=== PATIENT | male | born 1945 | race Caucasian/White ===

== ENCOUNTER 2023-10-29 23:19 | Inpatient (IN) | payer OTHER ==
[2023-10-30 00:26] LABS: VENOUS BASE EXCESS -5.3 mmol/L (-2-2); VENOUS O2 SATURATION 31.9 % (70-80); VENOUS PCO2 45.3 mmHg (38-52); VENOUS PH 7.288 (7.310-7.410)
[2023-10-30 00:29] LABS: BASO % 0.7 % (0-2.0); EOS % 0.4 % (0-4.5); HEMATOCRIT 35.9 % (35.4-49); HEMOGLOBIN 12.2 GM/dL (11.7-16.9); LYMPH % 15.1 % (8-40); MCH 30.2 pg (25.7-33.7); MEAN CELL VOLUME 88.7 fl (80-96); MEAN PLT VOLUME 9.3 fl (7.5-11.1); MONO % 5.4 % (3.8-10.2); NEUT % 78.4 % (42.8-82.8); PLATELET COUNT 187 10^3/uL (134-434); RBC 4.05 M/mm3 (4.00-5.60); RDW 14.3 % (11.9-15.9); WHITE BLOOD COUNT 9.3 K/mm3 (4.0-10.0)
[2023-10-30 00:35] LABS: PROTHROMBIN TIME (PATIENT) 56.3 SEC (9.7-13.0)
[2023-10-30 00:38] LABS: ACTIVATED PTT 42.8 SECONDS (25.2-36.5)
[2023-10-30 00:47] LABS: POTASSIUM 5.2 mmol/L (3.5-5.1)
[2023-10-30 00:50] LABS: CALCIUM 8.9 mg/dL (8.5-10.1)
[2023-10-30 00:51] LABS: BLOOD UREA NITROGEN 15.8 mg/dL (7-18); MAGNESIUM 1.6 mg/dL (1.8-2.4)
[2023-10-30 00:53] LABS: CREATININE 1.3 mg/dL (0.55-1.3)
[2023-10-30 00:54] LABS: BILIRUBIN,TOTAL 0.5 mg/dL (0.2-1)
[2023-10-30 00:58] LABS: N-TERMINAL BNP 1951.8 pg/ml (5-450)
[2023-10-30 01:04] LABS: INR 5.23 (0.83-1.09)
[2023-10-30] MEDS ORDERED: methylPREDNISolone NA SUCC 125 MG/2 ML VIAL ONE (01:14)
[2023-10-30] MEDS ORDERED: ALBUTEROL SO4 2.5/IPRATROPIUM 0.5 INH SOL 3 ML VIAL.NEB. NEB ONE (01:14)
[2023-10-30] MEDS: ALBUTEROL SO4 2.5/IPRATROPIUM 0.5 INH SOL 3 ML VIAL.NEB. NEB SCH (01:23)
[2023-10-30] MEDS: methylPREDNISolone NA SUCC 125 MG/2 ML VIAL IVPUSH ONE (01:23)
[2023-10-30 02:34] LABS: URINE APPEARANCE CLEAR; URINE BILIRUBIN NEGATIVE (NEGATIVE); URINE COLOR YELLOW; URINE GLUCOSE (UA) NEGATIVE (NEGATIVE); URINE KETONE NEGATIVE (NEGATIVE); URINE LEUK ESTERASE NEGATIVE (NEGATIVE); URINE NITRITE NEGATIVE (NEGATIVE); URINE PROTEIN NEGATIVE (NEGATIVE); URINE UROBILINOGEN 0.2 mg/dL (0.2-1.0)
[2023-10-30] MEDS ORDERED: MAGNESIUM SULFATE IN WATER 2 GM/50 ML IVPB IVPB ONE (04:03)
[2023-10-30 04:18] LABS: VENOUS BASE EXCESS -8.2 mmol/L (-2-2); VENOUS O2 SATURATION 64.8 % (70-80); VENOUS PH 7.362 (7.310-7.410)
[2023-10-30] MEDS: MAGNESIUM SULFATE IN WATER 2 GM/50 ML IVPB IVPB ONE (04:22)
[2023-10-30] MEDS ORDERED: ACETAMINOPHEN 325 MG TABLET (FP) PO PRN (04:53)
[2023-10-30] MEDS ORDERED: DOCUSATE SODIUM 100 MG CAPSULE (FP) PO PRN (04:53)
[2023-10-30 06:17] LABS: PROTHROMBIN TIME (PATIENT) 51.7 SEC (9.7-13.0)
[2023-10-30 08:36] LABS: INR 4.79 (0.83-1.09)
[2023-10-30] MEDS ORDERED: ALBUTEROL SO4 2.5/IPRATROPIUM 0.5 INH SOL 3 ML VIAL.NEB. NEB PRN (08:54)
[2023-10-30] MEDS: CARVEDILOL 25 MG TABLET (FP) PO SCH (09:14)
[2023-10-30] MEDS: ASPIRIN COATED 81 MG TABLET.EC PO SCH (09:14)
[2023-10-30] MEDS: methylPREDNISolone NA SUCC 40 MG/1 ML VIAL IVPUSH SCH (09:15)
[2023-10-30] MEDS: SERTRALINE HCL 50 MG TABLET (FP) PO SCH (09:15)
[2023-10-30] MEDS: amLODIPine BESYLATE 10 MG TABLET (FP) PO SCH (09:15)
[2023-10-30] MEDS ORDERED: INSULIN REGULAR HUMAN 100 UNITS/ML *VIAL ONE (11:58)
[2023-10-30] MEDS: INSULIN ASPART SLIDING SCALE (NOVOLOG) 1 VIAL SQ SCH (12:03)
[2023-10-30 13:16] LABS: POTASSIUM 5.3 mmol/L (3.5-5.1)
[2023-10-30 13:21] LABS: CALCIUM 9.3 mg/dL (8.5-10.1)
[2023-10-30 13:22] LABS: BLOOD UREA NITROGEN 14.3 mg/dL (7-18); MAGNESIUM 1.8 mg/dL (1.8-2.4)
[2023-10-30 13:23] LABS: LACTIC ACID 5.2 mmol/L (0.4-2.0)
[2023-10-30 13:24] LABS: CREATININE 1.3 mg/dL (0.55-1.3); PHOSPHOROUS 2.1 mg/dL (2.5-4.9)
[2023-10-30] MEDS: SODIUM ZIRCONIUM CYCLOSILICATE (LOKELMA) 5 GM PACKET PO SCH (14:28)
[2023-10-30] MEDS: FUROSEMIDE 40 MG/4 ML INJECTABLE VIAL IVPUSH ONE (14:28)
[2023-10-30 15:39] LABS: BASO % 0.2 % (0-2.0); HEMOGLOBIN 12.4 GM/dL (11.7-16.9); LYMPH % 18.6 % (8-40); MCHC 33.6 g/dl (32.0-35.9); MEAN CELL VOLUME 89.3 fl (80-96); MEAN PLT VOLUME 9.4 fl (7.5-11.1); MONO % 2.5 % (3.8-10.2); NEUT % 78.7 % (42.8-82.8); PLATELET COUNT 190 10^3/uL (134-434); RBC 4.14 M/mm3 (4.00-5.60); RDW 14.4 % (11.9-15.9); WHITE BLOOD COUNT 6.9 K/mm3 (4.0-10.0)
[2023-10-30 16:14] LABS: POTASSIUM 5.3 mmol/L (3.5-5.1)
[2023-10-30 16:16] LABS: CALCIUM 9.9 mg/dL (8.5-10.1)
[2023-10-30 16:18] LABS: ALBUMIN 3.9 g/dl (3.4-5.0); BLOOD UREA NITROGEN 14.6 mg/dL (7-18)
[2023-10-30 16:21] LABS: CREATININE 1.2 mg/dL (0.55-1.3)
[2023-10-30 16:22] LABS: BILIRUBIN,TOTAL 0.4 mg/dL (0.2-1); TOT PROT 7.3 g/dl (6.4-8.2)
[2023-10-30] MEDS ORDERED: INSULIN ASPART SLIDING SCALE (NOVOLOG) 1 VIAL SQ SCH (16:30)
[2023-10-30] MEDS: ATORVASTATIN CA 40 MG TABLET (FP) PO SCH (21:22)
[2023-10-30] MEDS: DONEPEZIL HCL 10 MG TABLET (FP) PO SCH (21:22)
[2023-10-30] MEDS ORDERED: INSULIN (NOVOLOG) ASPART 100 UNITS/ML 10ML VIAL ONE (21:26)
[2023-10-31] MEDS ORDERED: INSULIN (NOVOLOG) ASPART 100 UNITS/ML 10ML VIAL ONE ×2 (06:13→21:15)
[2023-10-31 07:30] LABS: BASO % 0.1 % (0-2.0); HEMATOCRIT 37.1 % (35.4-49); HEMOGLOBIN 12.6 GM/dL (11.7-16.9); LYMPH % 15.9 % (8-40); MCH 30.2 pg (25.7-33.7); MCHC 33.9 g/dl (32.0-35.9); MEAN CELL VOLUME 88.9 fl (80-96); MEAN PLT VOLUME 9.4 fl (7.5-11.1); MONO % 2.9 % (3.8-10.2); NEUT % 81.1 % (42.8-82.8); PLATELET COUNT 195 10^3/uL (134-434); RBC 4.18 M/mm3 (4.00-5.60); RDW 14.6 % (11.9-15.9); WHITE BLOOD COUNT 10.9 K/mm3 (4.0-10.0)
[2023-10-31 07:43] LABS: ALBUMIN 3.9 g/dl (3.4-5.0); CALCIUM 9.5 mg/dL (8.5-10.1); MAGNESIUM 1.7 mg/dL (1.8-2.4)
[2023-10-31 07:46] LABS: BLOOD UREA NITROGEN 22.9 mg/dL (7-18)
[2023-10-31 07:47] LABS: CREATININE 1.2 mg/dL (0.55-1.3); PHOSPHOROUS 3.8 mg/dL (2.5-4.9); TOT PROT 7.2 g/dl (6.4-8.2)
[2023-10-31 07:49] LABS: BILIRUBIN,TOTAL 0.4 mg/dL (0.2-1); INR 2.42 (0.83-1.09); PROTHROMBIN TIME (PATIENT) 27.1 SEC (9.7-13.0)
[2023-10-31] MEDS: FUROSEMIDE 20 MG TABLET (FP) PO SCH (09:54)
[2023-10-31] MEDS: BUDESONIDE/FORMETEROL FUMARATE 80/4.5 mcg INHALER IH SCH (09:58)
[2023-10-31] MEDS: ALBUTEROL SO4 2.5/IPRATROPIUM 0.5 INH SOL 3 ML VIAL.NEB. NEB SCH (12:08)
[2023-10-31] MEDS ORDERED: CARVEDILOL 12.5 MG TABLET (FP) PO SCH (12:08)
[2023-10-31] MEDS: MAGNESIUM 1GM/D5W 100ML - 100 ML IVPB IVPB ONE (13:08)
[2023-11-01] MEDS ORDERED: INSULIN (NOVOLOG) ASPART 100 UNITS/ML 10ML VIAL ONE ×2 (06:43→22:34)
[2023-11-01 07:03] LABS: BASO % 0.1 % (0-2.0); HEMATOCRIT 39.6 % (35.4-49); HEMOGLOBIN 13.3 GM/dL (11.7-16.9); LYMPH % 9.8 % (8-40); MCH 29.8 pg (25.7-33.7); MCHC 33.6 g/dl (32.0-35.9); MEAN CELL VOLUME 88.6 fl (80-96); MEAN PLT VOLUME 9.3 fl (7.5-11.1); MONO % 2.5 % (3.8-10.2); NEUT % 87.6 % (42.8-82.8); PLATELET COUNT 208 10^3/uL (134-434); RBC 4.46 M/mm3 (4.00-5.60); WHITE BLOOD COUNT 14.4 K/mm3 (4.0-10.0)
[2023-11-01 07:05] LABS: INR 1.76 (0.83-1.09); PROTHROMBIN TIME (PATIENT) 19.6 SEC (9.7-13.0)
[2023-11-01 07:25] LABS: POTASSIUM 4.7 mmol/L (3.5-5.1)
[2023-11-01 07:30] LABS: ALBUMIN 3.7 g/dl (3.4-5.0); CALCIUM 9.7 mg/dL (8.5-10.1)
[2023-11-01 07:35] LABS: BILIRUBIN,TOTAL 0.4 mg/dL (0.2-1); CREATININE 1.2 mg/dL (0.55-1.3); TOT PROT 6.7 g/dl (6.4-8.2)
[2023-11-01 12:43] LABS: PHOSPHOROUS 4.5 mg/dL (2.5-4.9)
[2023-11-01] MEDS: APIXABAN 5 MG TABLET PO SCH (23:49)
[2023-11-02 06:48] LABS: BASO % 0.2 % (0-2.0); HEMOGLOBIN 13.1 GM/dL (11.7-16.9); LYMPH % 9.7 % (8-40); MCH 29.6 pg (25.7-33.7); MCHC 33.6 g/dl (32.0-35.9); MEAN PLT VOLUME 9.3 fl (7.5-11.1); MONO % 2.7 % (3.8-10.2); NEUT % 87.4 % (42.8-82.8); PLATELET COUNT 207 10^3/uL (134-434); RBC 4.43 M/mm3 (4.00-5.60); RDW 14.4 % (11.9-15.9); WHITE BLOOD COUNT 14.7 K/mm3 (4.0-10.0)
[2023-11-02 07:05] LABS: POTASSIUM 4.8 mmol/L (3.5-5.1)
[2023-11-02 07:08] LABS: CALCIUM 9.5 mg/dL (8.5-10.1)
[2023-11-02 07:09] LABS: ALBUMIN 3.6 g/dl (3.4-5.0)
[2023-11-02 07:13] LABS: BILIRUBIN,TOTAL 0.6 mg/dL (0.2-1); CREATININE 1.2 mg/dL (0.55-1.3); TOT PROT 6.6 g/dl (6.4-8.2)
[2023-11-02] MEDS ORDERED: ALBUTEROL SO4 2.5/IPRATROPIUM 0.5 INH SOL 3 ML VIAL.NEB. NEB ONE (10:10)
[2023-11-03] MEDS: predniSONE 20 MG TABLET (UD) PO SCH (10:07)
[2023-11-03 16:26] LABS: BASO % 0.1 % (0-2.0); HEMATOCRIT 40.4 % (35.4-49); HEMOGLOBIN 13.9 GM/dL (11.7-16.9); LYMPH % 9.5 % (8-40); MCH 29.8 pg (25.7-33.7); MCHC 34.3 g/dl (32.0-35.9); MONO % 5.9 % (3.8-10.2); NEUT % 84.5 % (42.8-82.8); PLATELET COUNT 203 10^3/uL (134-434); RBC 4.64 M/mm3 (4.00-5.60); RDW 13.9 % (11.9-15.9); WHITE BLOOD COUNT 14.1 K/mm3 (4.0-10.0)
[2023-11-03 16:41] LABS: POTASSIUM 4.8 mmol/L (3.5-5.1)
[2023-11-03 16:43] LABS: BLOOD UREA NITROGEN 37.6 mg/dL (7-18); CALCIUM 8.9 mg/dL (8.5-10.1)
[2023-11-03 16:47] LABS: CREATININE 1.3 mg/dL (0.55-1.3)
[2023-11-04 08:14] LABS: BASO % 0.1 % (0-2.0); HEMATOCRIT 39.1 % (35.4-49); HEMOGLOBIN 13.5 GM/dL (11.7-16.9); LYMPH % 20.6 % (8-40); MCHC 34.4 g/dl (32.0-35.9); MEAN CELL VOLUME 87.3 fl (80-96); MEAN PLT VOLUME 9.4 fl (7.5-11.1); MONO % 9.4 % (3.8-10.2); NEUT % 69.9 % (42.8-82.8); PLATELET COUNT 191 10^3/uL (134-434); RBC 4.49 M/mm3 (4.00-5.60); RDW 14.1 % (11.9-15.9); WHITE BLOOD COUNT 12.5 K/mm3 (4.0-10.0)
[2023-11-04 08:37] LABS: POTASSIUM 4.2 mmol/L (3.5-5.1)
[2023-11-04 08:38] LABS: BLOOD UREA NITROGEN 34.3 mg/dL (7-18)
[2023-11-04] MEDS: SODIUM CHLORIDE 1 GM TABLET PO ONE (10:22)
[2023-11-04] MEDS: predniSONE 10 MG TABLET (UD) PO SCH (10:22)
[2023-11-04 14:52] LABS: URIC ACID 4.2 mg/dL (2.6-7.2)
[2023-11-04 16:02] VITALS: RESP 18
[2023-11-04 17:14] VITALS: BMI 29.5
[2023-11-05] MEDS ORDERED: ALBUTEROL SO4 HFA INHALER IH PRN (08:45)
[2023-11-05 08:46] LABS: POTASSIUM 4.2 mmol/L (3.5-5.1)
[2023-11-05 08:47] LABS: CALCIUM 8.9 mg/dL (8.5-10.1)
[2023-11-05 08:48] LABS: ALBUMIN 3.4 g/dl (3.4-5.0); BLOOD UREA NITROGEN 31.2 mg/dL (7-18)
[2023-11-05 08:51] LABS: CREATININE 0.9 mg/dL (0.55-1.3)
[2023-11-05 08:52] LABS: BILIRUBIN,TOTAL 1.1 mg/dL (0.2-1)
[2023-11-05 08:53] LABS: TOT PROT 6.1 g/dl (6.4-8.2)
[2023-11-05 13:08] LABS: MAGNESIUM 2.2 mg/dL (1.8-2.4)
[2023-11-05 14:19] VITALS: BP 110/73; PULSE 76; TEMP 97.8
[2023-11-06] MEDS ORDERED: GLIMEPIRIDE 2 MG TABLET PO SCH (07:00)
== END 2023-11-05 17:41 | DRG 191 ==
LOC: JER 23:19 → JERBED 10-30 03:03 → J4W 10-30 12:32
PROVIDERS: ADMIT Internal Medicine; ATTEND Internal Medicine
DX: J44.1 Chronic obstructive pulmonary disease with (acute) exacerbation (principal); D68.32 Hemorrhagic disorder due to extrinsic circulating anticoagulants; E87.1 Hypo-osmolality and hyponatremia; I48.92 Unspecified atrial flutter; N17.9 Acute kidney failure, unspecified; E87.20 Acidosis, unspecified; D68.8 Other specified coagulation defects; E78.5 Hyperlipidemia, unspecified; I50.9 Heart failure, unspecified; E83.42 Hypomagnesemia; I48.91 Unspecified atrial fibrillation; I11.0 Hypertensive heart disease with heart failure; F32.A Depression, unspecified; E11.9 Type 2 diabetes mellitus without complications; E87.5 Hyperkalemia; F03.90 Unspecified dementia, unspecified severity, without behavioral disturbance, psychotic disturbance, mood disturbance, and anxiety; R55 Syncope and collapse; R79.89 Other specified abnormal findings of blood chemistry; Z85.118 Personal history of other malignant neoplasm of bronchus and lung
CPT/HCPCS: 0241U-QW; 36415; 71045-TC-FY; 80048; 80053; 80061; 81003; 82436; 82570; 82803; 82962; 83036; 83605; 83690; 83735; 83880; 83930; 83935; 84100; 84133; 84155; 84165; 84300; 84484; 84550; 85025; 85610; 85730; 87086; 87635; 93005; 93010; 93306-TC; 94640; 94761; 97116-GP; 97161-GP; 99285-25